=== PATIENT | male | born 1995 | race Caucasian/White ===

== ENCOUNTER → 2016-09-28 | Outpatient (CLI) | payer OTHER ==
--- NOTE | 2016-09-28 13:44 | RAD ---
Indication injury to the second and third digits. AP and lateral views of the left hand were obtained. No bony abnormality is seen
== END | disposition home or self-care (01) ==
LOC: DXRADRC 12:35
PROVIDERS: ATTEND Family Medicine
DX: S60.031A Contusion of right middle finger without damage to nail, initial encounter (principal); S60.021A Contusion of right index finger without damage to nail, initial encounter; S60.222A Contusion of left hand, initial encounter; X58.XXXA Exposure to other specified factors, initial encounter; Y93.89 Activity, other specified; Y92.89 Other specified places as the place of occurrence of the external cause; Y99.8 Other external cause status
CPT/HCPCS: 73120